=== PATIENT | male | born 1930 | race Hispanic/Latino ===

== ENCOUNTER 2017-04-09 10:08 | Outpatient (CLI) | payer MEDICARE ==
--- NOTE | 2017-04-09 10:46 | XRay Report ---
RIGHT SHOULDER, 3 VIEWS: HISTORY: right shoulder pain. There is moderate osteopenia. No acute osseous injury or joint pathology is detected. The soft tissues are unremarkable. IMPRESSION: Osteopenia. Otherwise, unremarkable right shoulder films.
== END 2017-04-09 10:09 | disposition home or self-care (01) ==
LOC: SPVIMAG 10:08
PROVIDERS: ATTEND Orthopaedic Surgery Sports Medicine
DX: M85.811 Other specified disorders of bone density and structure, right shoulder (principal)